=== PATIENT | female | born 1985 | race Caucasian/White ===

== ENCOUNTER 2017-04-07 20:08 | Emergency (ER) | payer OTHER ==
[~2017-04-07] VITALS: Ht 162.6 cm; Wt 68.2 kg
--- NOTE | 2017-04-07 20:31 | ED.REPORT ---
HPI-Abd Pain F 40 and Over Date of Service Apr 07, 2017 ED Provider: Jose Toscano DO Patient is a 31 year old female who presents to the ED via police complaining of right middle quadrant abdominal pain onset this morning. Associated symptoms include pain that radiates into her back and having one episode of emesis. Patient states that she awoke from sleep at the assisted with the pain. Nursing Notes Stated Complaint: ABDOMINAL PAIN Chief Complaint: Female Abdominal Pain Nursing Notes Reviewed: Yes Allergies: Coded Allergies: morphine (Verified Allergy, Mild, emesis, 04/07/17) General Time Seen by MD: 20:31 Chief Complaint Abdominal pain Hx Obtained From: Patient Arrived By: Police Sudden in Onset?: Yes Onset Occurred: 5 - 8 hours ago Symptom Duration: Since onset Location: : RUQ Quality: Painful Radiation: : Back Severity: Current: Pain level 8 out of 10 Similar Sx Previous: No Past Medical History Past Medical History none reported Smoking History Unknown if Ever Smoker Ambulatory Status Independent Review of Systems Constitutional: Denies: Chills, Fever Respiratory: Denies: Non-productive cough, Shortness of breath GI: Reports: Abdominal pain, Nausea, Vomiting Musculoskeletal: Reports: Back pain Complete sys rev & neg: except as marked. Physical Exam Vital Signs Vital Signs (First) Date Time Temp Pulse Resp B/P Pulse Ox O2 Delivery O2 Flow Rate FiO2 04/07/17 20:46 37.1 78 19 101/58 98 Room Air Initial VS: Reviewed General/Constitutional: Awake, Alert Respiratory / Chest: Atraumatic, Breath sounds NL, Breath sounds = bilat, No respiratory distress Cardiovascular: Heart rate NL, Regular rhythm, Heart sounds NL Abdomen: Atraumatic, Soft Tenderness/Guarding/Rebound: Positive: Tender RLQ... Back: Atraumatic, Non-tender Head / Eyes: Atraumatic, Normocephalic, PERRL, EOMI Skin: Atraumatic, Color NL, No rash, Warm, Dry Neurologic: Oriented X3, Speech NL, No motor deficits, No sensory deficits Psychiatric: Affect NL, Mood NL Interpretation & Diagnostics Interpretation & Diagnostics: US PELVIS COMPLETE, TRANSVAGINAL Findings: Normal pelvic ultrasound. at 2320 Lab Results Interpretation Result Diagram: 04/07/17202504/07/172025 Test 04/07/17 20:26 04/07/17 20:40 White Blood Count 7.8th/mm3 (3.8-10.1) Red Blood Count 4.25mil/mm3 (3.90-5.20) Hemoglobin 13.0g/dL (12.0-15.6) Hematocrit 39.0% (35.0-46.0) Mean Corpuscular Volume 91.8fL (81-100) Mean Corpuscular Hemoglobin 30.6pg (27.0-35.0) Mean Corpuscular Hemoglobin Concent 33.3% (32.0-37.0) Red Cell Distribution Width 12.2% (12.3-15.4) Platelet Count 340bil/L (150-400) Neutrophils (%) (Auto) 41.3% (40-74) Lymphocytes (%) (Auto) 45.7% (14-46) Monocytes (%) (Auto) 10.4% (4-12) Eosinophils (%) (Auto) 1.8% (0-5) Basophils (%) (Auto) 0.5% (0-3) Sodium Level 137mEq/L (134-144) Potassium Level 4.4mEq/L (3.5-5.2) Chloride Level 99mEq/L (97-108) Carbon Dioxide Level 27mmol/L (18-29) Blood Urea Nitrogen 13mg/dL (6-20) Creatinine 0.55mg/dL (0.57-1.00) Estimat Glomerular Filtration Rate 183mL/min (>59) Glucose Level 101mg/dL (60-99) Calcium Level 9.2mg/dL (8.5-10.1) Magnesium Level 2.0mg/dL (1.6-2.6) Total Bilirubin 0.2mg/dL (0.0-1.2) Aspartate Amino Transf (AST/SGOT) 13U/L (0-50) Alanine Aminotransferase (ALT/SGPT) 18U/L (0-32) Alkaline Phosphatase 54U/L (25-150) Total Protein 6.7g/dL (6.4-8.4) Albumin 3.9g/dL (3.4-5.0) Lipase 35U/L (13-60) Hold [place] Top Tube Received (Received) Urine Color Straw (YELLOW) Urine Appearance Cloudy (CLEAR,HAZY) Urine pH 8.0 (5.0-8.0) Urine Specific [place] 1.010 (1.003-1.035) Urine Protein Negativemg/dL (NEG,TRACE) Urine Glucose (UA) Negativemg/dL (NEGATIVE) Urine Ketones Negativemg/dL (NEGATIVE) Urine Occult Blood Negative (NEGATIVE) Urine Nitrite Negative (NEGATIVE) Urine Bilirubin Negative (NEGATIVE) Urine Urobilinogen Normalmg/dL (NORMAL) Urine Leukocyte Esterase Small (NEGATIVE) Urine RBC 0-2/hpf (0-2) Urine WBC 0-5/hpf (0-5) Urine Epithelial Cells None/hpf (NONE-MOD) Urine Crystals Amorphous urates (NONE Urine Bacteria Few/hpf (NONE-FEW) Urine Hyaline Casts None/lpf (NONE) Urine Granular Casts None seen (NONE SEEN) Urine Waxy Casts None seen (NONE SEEN) Urine Red Blood Cell Casts None seen (NONE SEEN) Urine White Blood Cell Casts None seen (NONE SEEN) Urine Mucus None seen (None Seen) Urine Trichomonas None seen (NONE SEEN) Urine Yeast None (NONE SEEN) Urinalysis Comment None Urine Culture Reflexed Indicated CT Abd / Pelvis Interpretation IMPRESSION: No CT findings to explain the patient's clinical symptoms. at 2318 Interpretation / Wet Read by: Interpret - Radiologist Re-Eval/Medical Decision Med Decision/Clinical Course Labs and scans were normal. Healthy 31-year-old female presents to us from assisted for evaluation of abdominal pain. Pain was precipitous in onset and diffuse. Ultrasound was negative for torsion. She was tender enough in the lower abdomen that appendicitis needs to be ruled out. CT scan ruled this out. Her pain was adequately treated. She discharged in stable condition with close outpatient follow-up. Re-Evaluation/Progress : Time of Eval: 23:51 Re-Evaluation/Progress Note: Discussed results and plan for discharge. Patient understands and agrees to plan. All questions were addressed. Counseled Regarding: Diagnosis, Lab results, Need for follow-up, When/why to return to ED Discharge & Departure Primary Impression: Right lower quadrant abdominal pain Disposition: Home Discharge Condition All VS Reviewed: Yes Condition: Stable Patient Instructions: Acute Abdominal Pain (ED) Additional Instructions: Your CT and ultrasound were normal and reassuring. Take 500mg of Tylenol every 8 hours and 600mg of Motrin every 8 hours. Follow up with your primary care physician next week or the assisted clinician. Your urine was sent out and is being cultured. This should be follow up in the next week for results. Return to the emergency department if you develop any new or worsening symptoms. Referrals: Salbador Garcia (PCP) Ozzy Attestation Portions of this note were transcribed by Cindy Maharaj. I, Dr. Toscano personally performed the history, physical exam and medical decision-making; I reviewed and confirmed the accuracy of the information in the transcribed note. Signed by: Ozzy France, 04/07/17 and 2050 copies to: Salbador Garcia Todd P DO Apr 07, 2017 20:31 Melisa Maharaj Apr 07, 2017 20:51
[2017-04-07] MEDS ORDERED: Ondansetron 2 mg/mL 2 mL Inj IVPUSH PRN (20:35)
[2017-04-07] MEDS: HYDROmorphone 0.5 mg/0.5 mL iSecure Syringe IVPUSH PRN ×2 (20:45→21:29)
[2017-04-07 20:46] VITALS: BP 101/58; PULSE 78; RESP 19; O2SAT 98
[2017-04-07 20:50] LABS: BASOPHILS % (AUTO) 0.5 % (0-3); EOSINOPHILS % (AUTO) 1.8 % (0-5); MONOCYTES % (AUTO) 10.4 % (4-12); Mean Corpuscular Hemoglobin 30.6 pg (27.0-35.0); Mean Corpuscular Volume 91.8 fL (81-100); NEUTROPHILS % (AUTO) 41.3 % (40-74); Platelet Count 340 bil/L (150-400)
[2017-04-07 21:31] LABS: APPEARANCE,URINE CLOUDY (CLEAR,HAZY); COLOR,URINE STRAW (YELLOW)
[2017-04-07 21:32] LABS: OCCULT BLOOD,URINE NEGATIVE (NEGATIVE); UROBILINOGEN,URINE NORMAL (NORMAL)
[2017-04-08 00:09] VITALS: BP 107/62; PULSE 57; RESP 16; O2SAT 96
[2017-04-08] MEDS: HYDROmorphone 0.5 mg/0.5 mL iSecure Syringe IVPUSH PRN (00:10)
--- NOTE | 2017-04-08 08:20 | DRSVH ---
PROCEDURE: US PELVIC SONOGRAM + TRANSVAGINAL SONOGRAM INDICATIONS: severe right lower quadrant and pelvic pain TECHNIQUE: Real-time scanning was performed of the pelvic organs, with image documentation. Additional endovagi nal scanning was necessary due to incomplete visualization of the adnexal and endometrial structures by transabdominal scanning. COMPARISON: Pelvic ultrasound 05/17/2009; abdomen ultrasound 01/17/2012; CT abdomen and pelvis 04/07/2017 . FINDINGS: Preliminary report by science analyst radiology (orthogonal measurements) Uterus size: 7.22 cm, 3.47 cm, 4.26 cm Endometrium thickness: 3.40 mm Right ovary size: 1.99 cm, 3.45 cm, 1.28 cm Left ovary size: 1.88 cm, 2.92 cm, 1.11 cm Transabdominal scanning: Limited scanning through the kidneys shows no hydronephrosis. No pathologi c free abdominal or pelvic fluid. Endovaginal scanning: Uterus: Uterus is normal in size and appearance. Endometrium is within normal physiologic limits. I UD is within the endometrial canal in normal position. Ovaries: Within normal physiologic limits. IMPRESSION: 1. Normal pelvic ultrasound. IUD present. 2. Appendix is not specifically identified. No secondary signs of appendicitis seen. No other cause o f right lower quadrant pain seen. Findings are concordant with the preliminary report. Dictated by: Amaury Govea M.D. on 7 at 8:10 Approved by: Amaury Govea M.D. on 04/08/2017 at 8:18
--- NOTE | 2017-04-08 08:54 | DRSVH ---
PROCEDURE: CT ABDOMEN AND PELVIS WITH CONTRAST ([id number]) INDICATIONS: rightlower quadrant pain TECHNIQUE: After the administration of intravenous contrast, 5 mm thick sections acquired from the diaphragm to the symphysis. 5 mm coronal and sagittal reformats were acquired. For radiation dose reduction, the following was used: automated exposure control, adjustment of mA and/or kV according to patient aida liu. COMPARISON: [facility], CT, HEAD WITHOUT CONTRAST, 11/17/2010, 16:46. FINDINGS: Image quality: Excellent. ABDOMEN: Lung bases: Lung bases are clear. Heart size is normal. Solid organs: Cholecystectomy. Minimal intrahepatic and extrahepatic biliary ductal dilatation with n o obstructing lesion identified. There is a 6 mm right lobe of the liver low density nodule (se 2 im 31). Peritoneum and bowel: Bowel loops demonstrate normal wall thickness and caliber. No free fluid or a ir. Nodes and vessels: No retroperitoneal or mesenteric adenopathy by size criteria. Aorta and inferior vena cava are normal in size. Miscellaneous: No ventral hernias. PELVIS: Genitourinary: Bladder wall thickness is normal. IUD. Miscellaneous: No inguinal hernias or adenopathy. Bones: No suspicious bony lesions. No vertebral body compression fractures. IMPRESSION: 1. No radiographic etiology for the patient's right lower quadrant pain. 2. There are no discrepancies with the preliminary report. Dictated by: Geo Bui M.D. on 04/08/2017 at 8:40 Approved by: Geo Bui M.D. on 04/08/2017 at 8:47
== END 2017-04-08 00:13 | disposition home or self-care (01) ==
LOC: SED 20:08
DX: R10.31 Right lower quadrant pain (principal); Z88.5 Allergy status to narcotic agent
CPT/HCPCS: 36415; 74177; 76830; 76856; 80053; 81000; 81025; 83690; 83735; 85025; 87086; 87491; 87591; 96374; 96375; 96376; 99285; J1170; J2405; Q9967